=== PATIENT | male | born 1950 | race Caucasian/White ===

== ENCOUNTER 2016-12-26 07:12 | Day surgery (SDC) | payer OTHER ==
[2016-12-26] MEDS ORDERED: LIDOCAINE 1% 20 ML MDV ONE (07:30)
[2016-12-26] MEDS ORDERED: LIDOCAINE 1% 20 ML MDV ID ONE (07:30)
[2016-12-26] MEDS ORDERED: DIPRIVAN 20 ML VIAL IVP ONE (09:10)
[2016-12-26] MEDS ORDERED: VERSED ONE (09:10)
[2016-12-26] MEDS ORDERED: SUBLIMAZE ONE (09:10)
[2016-12-26] MEDS ORDERED: LIDOCAINE HCL 2% LUER-JET ONE (09:10)
[2016-12-26 10:30] VITALS: BP 124/78; TEMP 96.8
--- NOTE | 2016-12-26 13:46 | OP ---
PROCEDURE: EGD (ESOPHAGOGASTRODUODENOSCOPY) WITH SEBASTIAN DILATATION. ENDOSCOPIST: Susi LEVIN M.D. INDICATION: Dysphagia INSTRUMENT: [id number]. MEDICATION: PER ANESTHESIA. PROCEDURE: The patient was positioned for endoscopy. The oropharynx was sprayed with Cetacaine spray and the endoscope was advanced through the oropharynx into the esophagus and from there advanced to the duodenum. The duodenum is grossly normal. The pylorus was patent. The antrum is normal. Retroflex exam reveals a normal cardiac. The esophagus with normal throughout it 's course. There was no obvious stricture or narrowing. The endoscopy was removed and a 48 [place] Sebastian was massed without difficulty. The patient tolerated the procedure without immediate complication. PLAN: 1. His symptoms sound more oropharyngeal. I will get a barium esophagram as well as the pathology evaluation. 2. Further recommendation to follow. CC: Dr. Dilan ALVAREZ
== END 2016-12-26 10:20 | disposition home or self-care (01) ==
LOC: SURG 07:12
PROVIDERS: ATTEND Internal Medicine Gastroenterology
DX: R13.12 Dysphagia, oropharyngeal phase (principal)

== ENCOUNTER 2016-12-28 08:56 | Outpatient (CLI) ==
--- NOTE | 2016-12-28 10:19 | DI ---
EXAM: Modified barium swallow HISTORY: Dysphagia. Technique: Lateral video fluoroscopy was performed in conjunction with speech therapy using multipl e consistencies to evaluate swallowing function. Findings / impression: Anterior cervical fusion hardware seen from C5-C7. Penetration was observed with solids. No aspiration was identified. Vallecular residue was seen with all consistencies. P leonardo see dedicated speech pathology report for additional details
--- NOTE | 2016-12-28 10:46 | RS.MODBRM ---
Subjective Number of treatment sessions: 1 Date of Evaluation: 12/28/16 Date of Onset/Injury/Change in Status: 12/26/16 Surgery Performed?: Yes (endoscopy with dialation of upper esophagus) Date of Surgery/Procedure (if applicable): 12/26/16 Treatment Diagnosis: dysphagia Prior Level of Function.....Patient was independent with: ADL's, Self Care, Work /Vocation, Ambulation/Mobility Current Level of Function: This 66 year old male currently lives with in their home. He is independent with ADLs, driving, medications, finances, feeding and swallowing. Pt is physically active and reports riding his bike regularly. Pt has a hx of modified barium swallow study in 2007 which indicated no significant results, no aspiration or penetration. Current Diet: Regular diet texture with thin liquids. Pt restricted himself from breads for preference. Pt was cautious to eat nuts, skin/peels on fruits and vegetables, and dry cereal with milk. Current Subjective/complaints:: Pt reported dificulty with swallowing for more than ten years, which causes him to cough, clear his throat, and sometimes sneeze. Pt stated he notices wheezing with breath sounds by the end of the day, however breath sounds are cleared by morning. Pt stated food feels stuck in his throat and he requires liquids to clear the food or will gargle. Both strategies help, but he still feels food stuck. By the end of the meal, pt reports his coughing increases and he feels mildly fatigued. Medical History Comments:: See medical chart for complete history. Patient reported, neck surgery in 2007 with plate and screws in C5-C7. Hx of dialation of esophagus, with limited success. Hx Home Medications: Allergy medications over the counter, nasal spray. Patient's Goals: Pt wants to try speech therapy to reduce swallowing effort and increase enjoyment with meals. Pt to be on safest and least restrictive diet to continue independent and social lifestyle. Food Presented Thin Liquid: cup (No aspiration or penetration.) Vanilla Wafer: 1/4 cookie (vallecular residue, penetration on residue and multiple swallow.) Oral Phase - Oral Phase Labial Closure: WFL Bolus Formation: Moderate Impairment Mastication: Mild Impairment Lingual Movement: Mild Impairment A/P Propulsion: Moderate Impairment Premature Vallecular Pooling: Coating Oral Residue: Mild Comments:: Oral phase mild-moderate impairments. Weak lingual movements and high hard palate both affecting bolus formation. A-P propulsion required multiple attempts with piece meal deglution and pooling in valleculae. Functional soft palate movement. Verbal cues with bolus formation and effortful swallow was successful to decreased premature spillage of bolus. Pharyngeal Phase Pharyngeal Response: Moderate Impairment Base of Tongue: Moderate Impairment Epiglottic Movement: Severe Impairment Laryngeal Excursion: Moderate Impairment Vallecular Residue: Severe Pyriform Residue: Moderate Comments:: Pharyngeal phase with moderate severe impairment. Pt with decreased base of tongue strength with limited epiglottic movement building moderate- severe residue in valleculae. Pt with coating under epiglottis and moderate amount of residue falling into laryngeal vestibule, causing flash penetration. Pt required up to 4 multiple swallows to clear residue, without success. Chin tuck not successful for residue clearance. Liquid wash successful for residue clearance, effortful swallow successful for bolus transfer. Summary and Recommendations - Recommendations PO Diet: Mechanical Soft, Moist, NO Dry Breads/Crackers, Thin Liquids Comments:: Pt has moderate-severe oropharyngeal dysphagia characterized by bolus formation, base of tongue strength, epiglottic movement, severe residue in valleculae, residue on epiglottic tip and undercoating, and large amount of residue penetrated on multiple swallow attempt. MANAGER LABORATORY recommends pt for speech therapy to target lingual strength, train with compensatory swallow strategies, and increase UES opening to reduce risk for aspiration. Pt is at mild-moderate risk for aspiration with solids. Further Therapy Indicated?: Yes Functional Reporting G Codes: Current CK Goal CJ Severity Impairment Rationale: Pt recommended for mechanical soft diet texture with thin liquids. Pt at moderate risk for aspiration. Pt with large amount of penetration on MBSS. Short Term Goals Problem: Oral phase Goal #1: Pt to produce adequate bolus formation on 8/10 trials. Goal to be met by: 01/18/17 Problem: Lingual strength Goal #2: Pt to complete 20 reps of lingual exercises over 2 trials with 80% acc. Goal to be met by: 01/18/17 Problem: Vallecular residue Goal #3: Pt to utilize compensatory swallow strategies with 100% acc. Goal to be met by: 01/18/17 Problem: Penetration of solids Goal #4: Pt to complete breathing exercises over 5 trials with 80% acc. Goal to be met by: 01/18/17 Ethics Officer Goals Problem: Penetration Goal #1: Pt to consume PO intake with minimal overt s/s of aspiration Problem: Vallecular residue Goal #2: Pt to tolerate mechanical soft diet texture and thin liquids Plan Duration of Treatment: 4 Weeks Frequency of Treatment: 1x a week Anticipated Discharge Destination: Home
== END 2016-12-28 08:57 | disposition home or self-care (01) ==
LOC: RAD 08:56
PROVIDERS: ATTEND Internal Medicine Gastroenterology
DX: R13.10 Dysphagia, unspecified (principal)

== ENCOUNTER 2017-01-16 16:26 | Outpatient (CLI) | payer OTHER ==
--- NOTE | 2017-01-17 08:03 | DI ---
EXAM: PA and lateral views of the chest HISTORY: Cough. COMPARISON: None FINDINGS: The cardiomediastinal silhouette is normal. There is no pneumothorax or pleural effusion . There is no consolidation, nodule or mass. The osseous structures demonstrate fusion hardware in the cervical spine. IMPRESSION: No acute cardiopulmonary process
== END 2017-01-16 16:27 | disposition home or self-care (01) ==
LOC: RAD 16:26
PROVIDERS: ATTEND Family Medicine
DX: J30.9 Allergic rhinitis, unspecified (principal); R05 Cough

== ENCOUNTER 2017-08-07 09:25 | Day surgery (SDC) ==
[2017-08-07] MEDS ORDERED: VERSED ONE (10:40)
[2017-08-07] MEDS ORDERED: DIPRIVAN 20 ML VIAL IVP ONE (10:40)
[2017-08-07 11:39] VITALS: BP 123/77; TEMP 98
--- NOTE | 2017-08-08 08:30 | OP ---
PROCEDURE: COLONOSCOPY TO THE CECUM WITH SNARE POLYPECTOMY. ENDOSCOPIST: Susi LEVIN M.D. INDICATION: HISTORY OF ADENOMATOUS POLYPS LAST EXAM: 3 YEARS PRIOR INSTRUMENT: [id number]. MEDICATION: PER ANESTHESIA. PROCEDURE: The patient was positioned for colonoscopy. The digital rectal exam was negative. The colonoscope was inserted through the anus and advanced to the cecum. The cecum was identified using the ileocecal valve and the appendiceal orifice as landmarks. The scope was slowly withdrawn through an adequately prepped colon. Small polyp removed in the cecum using snare cautery. A second polyp at 80cm using snare cautery. Diverticuli was seen in the left colon. The retroflex exam was otherwise negative. The patient tolerated the procedure without immediate complication. Withdraw time 13 minutes and 40 seconds. PLAN: 1. Review pathology 2. Anticipate repeat colonoscopy in 5 years. CC: Dr. Dilan ALVAREZ
== END 2017-08-07 11:48 | disposition home or self-care (01) ==
LOC: SURG 09:25
PROVIDERS: ATTEND Internal Medicine Gastroenterology
DX: Z09 Encounter for follow-up examination after completed treatment for conditions other than malignant neoplasm (principal); Z86.010 Personal history of colon polyps; D12.0 Benign neoplasm of cecum; D12.4 Benign neoplasm of descending colon; K57.30 Diverticulosis of large intestine without perforation or abscess without bleeding